=== PATIENT | female | born 1980 | race Caucasian/White ===

== ENCOUNTER 2018-07-15 07:28 | Inpatient (IN) ==
[2018-07-15] MEDS ORDERED: OXYTOCIN 30 UNITS/500 ML BAG IV PRN ×3 (10:45→22:38)
[2018-07-15] MEDS ORDERED: LACTATED RINGER'S 1,000 ML IV SCH (10:45)
[2018-07-15 11:09] LABS: Hematocrit (blood only) 42.7 % (37-47); Hemoglobin 14.4 g/dL (12.0-16.0); Mean Corpuscular Volume 92.2 fL (80-100); Mean Platelet Volume 10.7 fL (7.4-10.4); Platelet Count 149 K/uL (130-400); RDW Coefficient of Variation 13.7 % (11.5-14.5); RDW Standard Deviation 46.1 fL (36.4-46.3); Red Blood Count 4.63 M/uL (4.2-5.4); White Blood Count 11.44 K/uL (4.8-10.8)
--- NOTE | 2018-07-15 11:13 | Labor Progress Brief Note ---
Date of Service July 15, 2018 met pt and spouse reviewed course and admission H&P done bedside sono done FHR; CAT1 CTX2-3mins moderate VE; 50/-4 Plan start Pitocin augmentation Physical Exam 2 Vital Signs (Past 24 Hours): Last Vital Signs Temp 36.8 C 07/15/18 08:08 Pulse 80 07/15/18 09:11 Resp 18 07/15/18 08:08 BP 120/81 07/15/18 09:11
[2018-07-15 11:17] LABS: Mean Corpuscular Hgb Conc 33.7 g/dL (32-36)
--- NOTE | 2018-07-15 15:03 | History and Physical Report ---
DATE OF ADMISSION: 07/15/2018 HISTORY OF PRESENT ILLNESS: The patient is a 37-year-old G2, P1, due date is 07/14/2018 making her 40 weeks and 1 day who is here for prolonged gestation, labor induction. The patient has a history of microsomia. Her last delivery was 14 years ago, but weighed 9 pounds 9 ounces. Today on labor and delivery, she has no shortness of breath, no chills, no fever, no rupture of membranes, no bloody show. LABS: Unremarkable. PAST MEDICAL HISTORY: No history of diabetes, hypertension or asthma. PAST SURGICAL HISTORY: None. SOCIAL HISTORY: The patient denies tobacco, drug or alcohol use. FAMILY HISTORY: Noncontributory. PHYSICAL EXAMINATION: GENERAL: Well-developed, well-nourished white female in no acute distress. HEART: S1, S2, regular rhythm and rate. LUNGS: Clear to auscultation bilaterally. ABDOMEN: Gravid. Bedside ultrasound shows cephalic presentation. Pelvic exam shows she is fingertip, 50% effaced and -4 station. Estimated weight by Ramón's is 8 pounds. ASSESSMENT AND PLAN: A 37-year-old G2, P1 at 40 weeks, here for induction of labor for prolonged gestation, history of macrosomic infant delivery: The patient is admitted. Plan is to start labor induction.
[2018-07-15] MEDS ORDERED: BUPIVACAINE 0.25% 30 ML VIAL ONE (16:24)
[2018-07-15] MEDS ORDERED: ePHEDrine sulfate 50 MG/ML AMP ONE (16:24)
[2018-07-15] MEDS ORDERED: fentaNYL citrate 100 MCG/2 ML VIAL ONE (16:25)
[2018-07-15] MEDS ORDERED: fentaNYL 2MCG/ML ROPIV 1.25MG/ML 100 ML BAG EPI ONE (16:26)
[2018-07-15] MEDS: LACTATED RINGER'S 1,000 ML IV PRN ×2 (16:30→19:03)
--- NOTE | 2018-07-15 17:51 | Anesthesiology Consultation ---
Date of Service July 15, 2018 Assessment & Plan Chart Review Chart Review: Patient NOT seen in Pre Admission Testing and Acceptable Risk for Labor Epidural Consults Requested none History Height/Weight Height: 5 ft 3 in Weight: 98.883 kg Allergies Allergy/AdvReac Type Severity Reaction Status Date / Time No Known Allergies Allergy Mild Verified 05/13/18 10:00 Medications Home Medications Medication Instructions Recorded Confirmed Last Taken triamcinolone-emollient comb86 1 applic TOPICAL DAILY PRN #0 11/12/14 07/15/18 07/13/18 20:00 One A Day Women's DHA 1 tab-cap PO DAILY 07/15/18 07/15/18 07/14/18 21: 30 Active Medications Generic Name Dose Route Start Last Admin Trade Name Freq PRN Reason Stop Dose Admin Lactated Ringer's 1,000 mls @ 999 mls/hr 07/15/18 10:45 07/15/18 17:35 Lr IV 08/14/18 10:44 999 mls/hr .Q1H1M PRN Infusion (Pre-Anesthesia) Lactated Ringer's 1,000 mls @ 125 mls/hr 07/15/18 10:45 07/15/18 16:23 Lr IV 07/17/18 10:44 999 mls/hr .Q8H MAXIM Infusion Oxytocin 30 units in 500 mls @ 7 mls/hr 07/15/18 11:43 07/15/18 15:30 Pitocin IV 08/14/18 11:42 0.42 units/hr .Q24H PRN 7 mls/hr Labor Induction/Augmentation Titration Protocol 0.42 UNITS/HR Past Medical History Medical History Migraine Past Family History Family History Father Diabetes mellitus, type 2 Grandmother (Paternal) Diabetes mellitus, type 2 Social History Smoking Status: Never smoker Do You Dip or Chew Tobacco: No Hx Alcohol Use: Yes (socially when not ) Alcohol type: hard liquor alcohol intake frequency: holidays/special occasions only Hx Substance Use: No substance use type: does not use Physical Exam Vital Signs Last Vital Signs Temp 36.5 C 07/15/18 16:49 Pulse 70 07/15/18 17:49 Resp 18 07/15/18 16:49 BP 114/68 07/15/18 17:49 Pulse Ox 99 07/15/18 17:47 Testing Laboratory Results 07/15/18 10:54 Blood Type AB Positive 07/15/18 10:54 Antibody Screen NEGATIVE 07/15/18 10:54
[2018-07-15] MEDS ORDERED: ePHEDrine sulfate 50 MG/ML AMP IV PRN (17:53)
[2018-07-15] MEDS ORDERED: NALBUPHINE HCL INJ 10 MG/ML AMP IV PRN (17:53)
[2018-07-15] MEDS ORDERED: DiphenhydrAMINE HCL 50 MG/ML VIAL IV PRN (17:53)
[2018-07-15] MEDS ORDERED: NALOXONE HCL 0.4 MG/1 ML VIAL/CARP IV PRN (17:53)
[2018-07-15] MEDS ORDERED: fentaNYL 2MCG/ML ROPIV 1.25MG/ML 100 ML BAG EPI PRN (17:53)
[2018-07-15] MEDS ORDERED: LACTATED RINGER'S 1,000 ML IV PRN (17:53)
[2018-07-15] MEDS ORDERED: NALOXONE HCL 1 MG in SODIUM CHLORIDE 0.9% 1000ML 1,000 ML IV PRN (17:53)
--- NOTE | 2018-07-15 18:30 | Labor Progress Brief Note ---
Date of Service July 15, 2018 Pt doing well Epidural analgesia in place FHR; CAT1 Ctx 1-3mins Pit 7Mu VE; 10/100/-1 No pelvic pressure sensation Pt will let us know when she feels pelvic pressure so she can start pushing anticipate VD Physical Exam 2 Vital Signs (Past 24 Hours): Last Vital Signs Temp 36.5 C 07/15/18 16:49 Pulse 64 07/15/18 18:27 Resp 18 07/15/18 16:49 BP 120/73 07/15/18 18:20 Pulse Ox 99 07/15/18 18:27
[2018-07-15] MEDS ORDERED: SUPERCREAM 0.870% 15 GM JAR EXT PRN (22:38)
[2018-07-15] MEDS ORDERED: BENZOCAINE 20% AER SPR 82.5 GM CAN EXT PRN (22:38)
[2018-07-15] MEDS ORDERED: HYDROCORTISONE ACETATE 25 MG SUPP PR PRN (22:38)
[2018-07-15] MEDS ORDERED: BISACODYL 10 MG SUPP PR PRN (22:38)
[2018-07-15] MEDS ORDERED: DIPHTHERIA/TETANUS/PERTUSSIS 0.5 ML SYR/VIAL IM ONE (22:38)
[2018-07-15] MEDS ORDERED: ACETAMINOPHEN 325 MG TAB PO PRN (22:38)
--- NOTE | 2018-07-15 23:08 | Anesthesia Procedure Note ---
Date of Service July 15, 2018 Anesthesia Post Epidural Note Vital Signs Vital Signs: Temp Pulse Resp BP Pulse Ox 07/15/18 23:04 80 117/70 07/15/18 23:00 81 94 07/15/18 22:57 83 95 07/15/18 22:52 83 96 07/15/18 22:50 85 117/63 07/15/18 22:47 89 95 07/15/18 22:42 89 96 07/15/18 22:37 86 96 07/15/18 22:35 92 H 116/58 L 07/15/18 22:32 86 95 07/15/18 22:27 87 96 07/15/18 22:22 102 H 96 07/15/18 22:20 93 H 124/74 07/15/18 22:17 95 H 97 07/15/18 22:12 90 98 07/15/18 22:07 121 H 97 07/15/18 22:03 83 94 07/15/18 22:02 95 H 98 07/15/18 21:57 86 95 07/15/18 21:54 87 92 07/15/18 21:52 95 H 96 07/15/18 21:50 95 H 136/59 L 07/15/18 21:48 96 H 94 07/15/18 21:47 93 H 95 07/15/18 21:42 84 92 07/15/18 21:37 112 H 98 07/15/18 21:32 104 H 99 07/15/18 21:27 87 97 07/15/18 21:22 118 H 95 07/15/18 21:18 111 H 93 07/15/18 21:17 88 97 07/15/18 21:13 114 H 94 07/15/18 21:12 85 97 07/15/18 21:07 86 99 07/15/18 21:02 83 98 07/15/18 21:00 99 H 93 07/15/18 20:57 81 99 07/15/18 20:55 37.2 C 07/15/18 20:52 81 100 07/15/18 20:51 88 121/58 L 07/15/18 20:47 111 H 92 07/15/18 20:42 91 H 100 07/15/18 20:41 83 87 L 07/15/18 20:37 77 100 07/15/18 20:35 85 92 12/28/18 20:32 75 100 18 20:28 81 89 L 07/15/18 20:27 82 100 18 20:22 99 H 100 18 20:21 85 120/72 91 18 20:17 80 100 18 20:15 84 90 07/15/18 20:12 80 100 07/15/18 20:10 88 89 L 07/15/18 20:07 76 100 07/15/18 20:06 116 H 110/56 L 07/15/18 20:03 83 90 07/15/18 20:02 74 100 07/15/18 19:57 91 H 100 07/15/18 19:56 73 90 07/15/18 19:52 77 100 18 19:51 69 91 18 19:47 79 100 18 19:44 74 92 07/15/18 19:42 82 100 18 19:37 77 91 07/15/18 19:35 64 112/66 18 19:32 75 99 18 19:27 71 100 18 19:22 71 100 07/15/18 19:17 86 99 07/15/18 19:12 63 100 07/15/18 19:07 74 100 07/15/18 19:06 36.6 C 68 18 122/84 07/15/18 19:02 72 98 18 18:57 66 100 18 18:52 67 100 18 18:50 61 128/74 18 18:47 74 100 18 18:42 67 98 18 18:37 67 100 18 18:32 74 100 18 18:27 64 99 18 18:23 80 94 18 18:22 74 100 18 18:20 85 120/73 18 18:17 74 100 18 18:12 76 100 18 18:07 72 100 18 18:05 75 115/73 18 18:02 75 100 18 17:57 81 99 07/15/18 17:52 77 100 07/15/18 17:49 70 114/68 07/15/18 17:47 69 99 07/15/18 17:46 73 112/66 07/15/18 17:43 72 117/69 07/15/18 17:42 73 99 07/15/18 17:40 72 118/73 07/15/18 17:37 77 114/69 99 07/15/18 17:34 72 112/65 07/15/18 17:33 76 126/55 L 07/15/18 17:32 73 98 07/15/18 17:27 73 99 07/15/18 17:22 73 98 07/15/18 17:17 85 99 07/15/18 17:12 82 99 07/15/18 17:00 81 99 07/15/18 16:55 87 98 07/15/18 16:50 72 99 07/15/18 16:49 36.5 C 78 18 129/72 07/15/18 16:45 70 99 07/15/18 16:40 77 100 07/15/18 16:35 75 98 07/15/18 16:30 76 98 07/15/18 15:02 36.9 C 18 07/15/18 15:01 72 123/83 07/15/18 13:02 36.8 C 71 16 119/83 07/15/18 11:13 36.6 C 62 18 127/78 07/15/18 09:11 80 120/81 07/15/18 08:08 36.8 C 18 Notes Mental Status: alert / awake / arousable and participated in evaluation Nausea / Vomiting: adequately controlled Pain: adequately controlled Airway Patency, RR, SpO2: stable & adequate BP & HR: stable & adequate Hydration State: stable & adequate Neuraxial Anesthesia: was administered and sensory block is resolving Anesthetic Complications: no major complications apparent and Pt Satisfied with anesthetic care Epidural: Removed without complications and With tip intact
[2018-07-15 23:15] LABS: Base Excess Cord Venous Blood -5.5 mEq/L (-7.7-1.9); Cord Venous Blood HCO3 23 mmol/L (18.4-26.8); Cord Venous Blood PCO2 55 mmHg (30.4-57.2); Cord Venous Blood PO2 28 mmHg (14.1-43.3); Cord Venous Blood pH 7.24 (7.20-7.44); O2 Saturation Cord Venous Bld < 60.0 % (<68)
[2018-07-15 23:16] LABS: Base Excess Cord Arterial Bld -4.3 mEq/L (-9-1.8); CO2 Cord Arterial Blood 40 mmHg (39.1-73.5); HCO3 Cord Arterial Blood 21 mmol/L (19.7-28.5); PO2 Cord Arterial Blood 40.3 % (4.1-31.7); pH Cord Arterial Blood 7.34 (7.1-7.38)
[2018-07-16] MEDS: IBUPROFEN 600 MG TAB PO PRN ×6 (00:08→21:16)
--- NOTE | 2018-07-16 03:11 | Delivery Summary ---
DATE OF OPERATION: 07/15/2018 DELIVERY NOTE: Patient delivered a live in right occiput anterior presentation. There was tight nuchal cord which was clamped, cut and reduced. The was delivered and handed over to Pediatric team. There was terminal meconium. 's weight and Apgars are in the pediatric record. Cord blood and cord gas was obtained. Placenta was spontaneously delivered and sent to pathology for pathological analysis. Inspection of the placenta shows meconium, otherwise placenta appears grossly normal with 3-vessel cord. Estimated blood loss is 500 mL. Inspection of the perineum shows a second degree midline laceration which was repaired with 2-0 Vicryl in layers. There was good hemostasis with repair. All instruments were removed from the vagina and accounted for x2 including retractors, needles and sponges. Baby and mother are stable in recovery. I attest to the content of the Intraoperative Record and any orders documented therein. Any exception s are noted below.
[2018-07-16 07:31] LABS: Hematocrit (blood only) 32.5 % (37-47); Mean Corpuscular Hgb Conc 33.8 g/dL (32-36); Mean Corpuscular Volume 91.5 fL (80-100); Mean Platelet Volume 10.9 fL (7.4-10.4); Platelet Count 132 K/uL (130-400); RDW Coefficient of Variation 13.7 % (11.5-14.5); RDW Standard Deviation 45.3 fL (36.4-46.3); Red Blood Count 3.55 M/uL (4.2-5.4); White Blood Count 13.42 K/uL (4.8-10.8)
[2018-07-16] MEDS: FERROUS SULFATE 325 MG TAB PO SCH (08:29)
[2018-07-16] MEDS: PRENATAL VITAMIN 1 TAB PO SCH (08:29)
[2018-07-16] MEDS: DOCUSATE SODIUM 100 MG CAP PO SCH ×2 (08:29→21:16)
--- NOTE | 2018-07-16 09:03 | Obstetrical Progress Note ---
Date of Service July 16, 2018 Subjective doing well Physical Exam 2 Vital Signs (Past 24 Hours): Last Vital Signs Temp 36.4 C L 07/16/18 03:20 Pulse 74 07/16/18 03:20 Resp 18 07/16/18 03:20 BP 106/68 07/16/18 03:20 Pulse Ox 94 07/15/18 23:00 Constitutional: WD/WN, vitals as above comfortable Gastrointestinal (Abdomen): Percussion/Palpation: abdomen soft uterus firm no edema neg Lenard"s PPD#1 tent d/c in AM
[2018-07-16] MEDS ORDERED: BISACODYL 5 MG TABEC PO SCH (20:00)
[2018-07-17] MEDS: IBUPROFEN 600 MG TAB PO PRN ×2 (03:35→08:31)
[2018-07-17 06:46] LABS: Hematocrit (blood only) 31.1 % (37-47); Hemoglobin 10.5 g/dL (12.0-16.0)
[2018-07-17] MEDS: FERROUS SULFATE 325 MG TAB PO SCH (08:31)
[2018-07-17] MEDS: PRENATAL VITAMIN 1 TAB PO SCH (08:31)
[2018-07-17] MEDS: DOCUSATE SODIUM 100 MG CAP PO SCH (08:31)
--- NOTE | 2018-07-17 11:15 | Obstetrical Progress Note ---
Date of Service July 17, 2018 Assessment & Plan (1) normal course: PPD #2 pt doing well No complaints D/c home with instructions Subjective Ambulation: ambulating normally Voiding: no voiding problems Passing Gas:: Yes Diet Tolerance:: regular diet Lochia:: Small Feeding Type:: breast feeding Review of Systems All systems reviewed & are unremarkable except as noted in HPI & below Physical Exam Vital Signs (Past 24 Hours) Last Vital Signs Temp 36.5 C 07/17/18 07:26 Pulse 69 07/17/18 07:26 Resp 16 07/17/18 07:26 BP 125/79 07/17/18 07:26 Pulse Ox 99 07/17/18 07:26 Constitutional WD/WN, vitals as above well developed and well nourished Eyes PERRL, conjunctivae normal, anicteric sclerae Neck trachea midline, no thyromegaly Respiratory normal respiratory effort, lungs clear to auscultation Auscultation: no crackles, no rales and no wheezes Cardiovascular RRR, no murmur, no edema Gastrointestinal (Abdomen) normal bowel sounds, soft, nontender, no hepatosplenomegaly Uterus is below umbilicus Musculoskeletal no cyanosis or clubbing, extremities motor strength 5/5 Skin no rashes, warm and dry Neurologic patellar DTR's 2+ bilat, sensation intact Psychiatric A+Ox3, euthymic affect Genitourinary normal external appearance
== END 2018-07-17 12:50 | disposition home or self-care (01) | DRG 807 ==
LOC: 4S1 07:28 → 4S2 07-16 01:41